=== PATIENT | female | born 1995 | race African-American/Black ===

== ENCOUNTER 2016-11-07 23:52 | Emergency (ER) | payer BC ==
[~2016-11-07] VITALS: Ht 170.2 cm; Wt 111.1 kg
[2016-11-08] MEDS ORDERED: KEFLEX500 MG PO (01:13)
[2016-11-08] MEDS ORDERED: PREDNISONE20 MG PO (01:13)
[2016-11-08 01:20] VITALS: BP 111/77
[2016-11-08] MEDS ORDERED: NO ROUTINE HOME MEDS (01:21)
== END 2016-11-08 01:21 | disposition home or self-care (01) ==
LOC: EME 23:52
DX: L25.8 Unspecified contact dermatitis due to other agents (principal)
CPT/HCPCS: 99281; 99284; J7512

== ENCOUNTER 2017-03-28 12:07 | Emergency (ER) | payer OTHER ==
[~2017-03-28] VITALS: Ht 167.6 cm; Wt 109.5 kg
[~2017-03-28 12:07] MED LIST: KEFLEX500 MG PO; NO ROUTINE HOME MEDS; PREDNISONE20 MG PO
[2017-03-28 14:31] LABS: ADD MIUA? YES; BILIRUBIN NEGATIVE; BLOOD NEGATIVE; COLOR YELLOW ((YELLOW)); GLUCOSE (STRIP) NEGATIVE; KETONES NEGATIVE; LEUKOCYTES TRACE; NITRITE NEGATIVE; PROTEIN (STRIP) 30; SPECIFIC GRAVITY 1.017 (1.000-1.030); UROBILINOGEN 0.2 MG/DL (0.2-1.0)
[2017-03-28 14:40] LABS: BACTERIA NONE SEEN /HPF; EPITHELIAL CELLS 2+ /HPF; MUCUS NONE SEEN /LPF; WHITE BLOOD CELLS 0-5 /HPF (0-5)
[2017-03-28] MEDS ORDERED: MOTRIN800 MG PO (16:37)
[2017-03-28] MEDS ORDERED: PREDNISONE20 MG PO (16:37)
[2017-03-28] MEDS ORDERED: FLONASE16 G1 BOTH NARES (16:37)
[2017-03-28] MEDS ORDERED: FIORICET 50-301 EACH PO (16:37)
[2017-03-28] MEDS ORDERED: CLARITIN10 M3 PO (16:37)
[2017-03-28 17:11] VITALS: BP 122/70
== END 2017-03-28 17:12 | disposition home or self-care (01) ==
LOC: EME 12:07
PROVIDERS: Physician Assistant
DX: G44.219 Episodic tension-type headache, not intractable (principal); J30.9 Allergic rhinitis, unspecified
CPT/HCPCS: 70450; 81003; 99281; 99283

== ENCOUNTER 2018-05-09 21:46 | Emergency (ER) | payer OTHER ==
[~2018-05-09] VITALS: Ht 170.2 cm; Wt 127.6 kg
[~2018-05-09 21:46] MED LIST changes: +CLARITIN10 M3 PO; +FIORICET 50-301 EACH PO; +FLONASE16 G1 BOTH NARES; +MOTRIN800 MG PO
[2018-05-10 01:13] LABS: BASOPHIL (%) 0.2 % (0-1); EOSINOPHIL (%) 2.6 % (0-5); EOSINOPHIL COUNT 0.2 K/uL (0-0.3); HEMATOCRIT 31.9 % (36.0-46.0); HEMOGLOBIN 11.2 G/DL (11.9-15.5); IMMATURE GRANULOCYTE (%) 0.3 % (0.0-0.7); LYMPHOCYTE (%) 37.5 % (15-42); LYMPHOCYTE COUNT 3.4 K/uL (1.0-2.8); MCHC 35.1 G/DL (30.0-36.0); MCV 79.8 FL (83-99); MONOCYTE COUNT 0.8 K/uL (0-0.8); NEUTROPHIL (%) 50.4 % (45-76); NEUTROPHIL COUNT 4.6 K/uL (1.8-6.4); PLATELET COUNT 259 K/uL (156-360); RBC DIS.WIDTH-CV 12.5 % (11.8-14.6); WHITE BLOOD COUNT 9.2 K/uL (4.1-10.2)
[2018-05-10 01:26] LABS: CHLORIDE 107 mEq/L (99-109); POTASSIUM 3.6 mEq/L (3.7-5.4); SODIUM 139 mEq/L (136-147)
[2018-05-10 01:28] LABS: GLUCOSE 109 mg/dL (70-99)
[2018-05-10 01:32] LABS: CREATININE 0.7 mg/dL (0.6-1.3); GFR ESTIMATE (CALCULATED) > 59 mL/min/
[2018-05-10 01:33] LABS: UREA NITROGEN (BUN) 5 mg/dL (9-23)
[2018-05-10] MEDS ORDERED: NORCO 7.5/321 TABLET PO (03:09)
[2018-05-10] MEDS ORDERED: MOTRIN800 MG PO (03:09)
[2018-05-10] MEDS ORDERED: VIBRAMYCIN100 MG PO (03:09)
[2018-05-10 03:31] LABS: RED CELL COUNT 3000 /MM^3 (0-1); WHITE CELL COUNT 34800 /MM^3 (0-200.0)
[2018-05-10 03:43] VITALS: BP 120/65
[2018-05-10 05:36] LABS: MONONUCLEAR WBC'S 13 %; POLYNUCLEAR WBC'S 87 % (0-25); SYNOVIAL FLUID EOSINOPHILS 0 % (0-25)
[2018-05-10 05:37] LABS: APPEARANCE HAZY/YELLOW
[2018-05-10 06:49] LABS: CRYSTALS NO CRYSTALS SEEN
[2018-05-10 10:52] LABS: LYME DISEASE SEROLOGY SCREEN NEGATIVE (NEGATIVE)
== END 2018-05-10 03:44 | disposition home or self-care (01) ==
LOC: EME 21:46
PROVIDERS: Physician Assistant
PROC: 0S9C3ZX Drainage of Right Knee Joint, Percutaneous Approach, Diagnostic (ICD-10-PCS; principal; 2018-05-09)
DX: M25.461 Effusion, right knee (principal)
CPT/HCPCS: 73564; 80048; 85025; 86618; 87205; 89051; J0696; J1885; J3010